=== PATIENT | female | born 1985 | race Asian ===

== ENCOUNTER 2018-04-22 03:20 | Inpatient (IN) | payer BC ==
[2018-04-22] MEDS ORDERED: Nalbuphine 20 MG/1 ML Amp IVPUSH PRN (05:12)
[2018-04-22] MEDS ORDERED: Sodium Chloride 0.9% 10 ML Syringe FLUSH PRN (05:12)
[2018-04-22] MEDS ORDERED: Ondansetron 4 MG/2 ML SDV IVPUSH PRN (05:12)
[2018-04-22] MEDS ORDERED: Oxytocin/Lactated Ringers 10 UNIT/1,000 ML BAG IV SCH ×2 (05:15→07:45)
[2018-04-22] MEDS ORDERED: Lactated Ringers 1,000 ML IV SCH (05:15)
--- NOTE | 2018-04-22 05:25 | PCM.LDHP ---
L&D History of Present Illness - General Date of Service: 04/22/18 Admit Problem/Dx: Patient Status Order with Admit Dx/Problem 04/22/18 04:26 Patient Status [ADT] Routine 04/22/18 05:12 Patient Status [ADT] Routine Admission Diagnosis/Problem Admission Diagnosis/Problem Source of Information: Patient History Limitations: Reports: No Limitations - History of Present Illness Introduction:: Patient is a 32 y/o at 39 0/7 wks who presents with PROM. States that at about 0130 this am had a release of scant amount of fluid. Has had some mild tightening, but no peggy contractions. Otherwise doing well. Denies any complications with this - Related Data Allergies/Adverse Reactions: Allergies Allergy/AdvReac Type Severity Reaction Status Date / Time No Known Allergies Allergy Verified 10/11/15 01:12 Home Medications: Home Meds Acetaminophen [Tylenol] 650 mg PO Q6H PRN #50 tablet 10/13/15 [Rx] Benzocaine/Menthol [Dermoplast Pain Relief [place]] 1 spray TOP ASDIRECTED PRN #1 canister 10/13/15 [Rx] Docusate Sodium [Colace] 100 mg PO BID PRN #50 cap 10/13/15 [Rx] Ibuprofen [Motrin] 200 - 600 mg PO Q6H PRN #50 tablet 10/13/15 [Rx] Lanolin [Lansinoh HPA] 1 applic TOP ASDIRECTED PRN #1 tube 10/13/15 [Rx] Past Medical History - Past Health History Medical/Surgical History: Denies 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 (Approximate): Social & Family History - Family History HEENT: Reports: Other (See Below) Other HEENT Family History: See pts for family hx - Tobacco Use Smoking Status *Q: Never Smoker - Alcohol Use Alcohol Use History: No - Recreational Drug Use Recreational Drug Use: No H&P Review of Systems - Review of Systems: Review Of Systems: See Below General: Reports: No Symptoms Pulmonary: Reports: No Symptoms Cardiovascular: Reports: No Symptoms Gastrointestinal: Reports: No Symptoms Genitourinary: Reports: No Symptoms Musculoskeletal: Reports: No Symptoms Psychiatric: Reports: No Symptoms Neurological: Reports: No Symptoms L&D Exam - Exam Exam: See Below - OB Specific Contraction Intensity: Mild Movement: Active Heart Tones: Present Heart Tones per Min: 130 Heart Rate (FHR) Variability: Moderate (6-25 bmp) Presentation: Vertex - Zheng Score Zheng Score Cervix Position: Posterior Zheng Score Consistency: Medium Zheng Score Effacement: 31-50% Zheng Score Dilation: 1-2 cm Zheng Score 's Station: -3 Zheng Score Total: 3 - Exam General: Alert, Oriented, Cooperative Lungs: Clear to Auscultation, Normal Respiratory Effort Cardiovascular: Regular Rate, Regular Rhythm GI/Abdominal Exam: Soft, Non-Tender Genitourinary: Normal external exam Extremities: Normal Inspection Skin: Warm, Dry, Intact - Patient Data Lab Results Last 24 hrs: Laboratory Results - last 24 hr 04/22/18 Range/Units 04:20 Membrane Rupture Positive H - Problem List (1) 39 weeks gestation of SNOMED Code(s): 21845898 ICD Code: Z3A.39 - 39 WEEKS GESTATION OF Status: Acute Current Visit: Yes (2) PROM (premature rupture of membranes) SNOMED Code(s): 20946702 ICD Code: O42.90 - JULIANNA ROM, 7TH0 BETW RUPT & ONST LABR, UNSP WEEKS OF GEST Status: Acute Current Visit: Yes Qualifiers: PROM onset of labor timing: unspecified duration between rupture of membranes and onset of labor PROM gestational age: full term Qualified Code( s): O42.92 - Full-term premature rupture of membranes, unspecified as to length of time between rupture and onset of labor Problem List Initiated/Reviewed/Updated: Yes Orders Last 24hrs: Active Orders 24 hr Category Date Time Status Patient Status [ADT] Routine ADT 04/22/18 04:26 Active Patient Status [ADT] Routine ADT 04/22/18 05:12 Ordered Activity as Tolerated [RC] PFP Care 04/22/18 05:12 Ordered Communication Order [RC] ASDIRECTED Care 04/22/18 05:12 Ordered Heart Tones [RC] ASDIRECTED Care 04/22/18 05:12 Ordered Non Stress Test [RC] PER UNIT ROUTINE Care 04/22/18 04:26 Active Non Stress Test [RC] PER UNIT ROUTINE Care 04/22/18 05:12 Ordered Notify Provider [RC] PFP Care 04/22/18 05:12 Ordered Notify Provider [RC] PRN Care 04/22/18 05:12 Ordered Peripheral IV Care [RC] . DIRECTED Care 04/22/18 05:12 Ordered Vaginal Exam [RC] PRN Care 04/22/18 04:27 Active Vital Signs [RC] PER UNIT ROUTINE Care 04/22/18 04:26 Active Vital Signs [RC] PER UNIT ROUTINE Care 04/22/18 05:12 Ordered Regular Diet [DIET] Diet 04/22/18 Breakfast Ordered CBC W/O DIFF,HEMOGRAM [HEME] Routine Lab 04/22/18 05:12 Ordered RAPID PLASMA REAGIN,RPR [CHEM] Routine Lab 04/22/18 05:12 Ordered TYPE AND SCREEN [BBK] Routine Lab 04/22/18 05:12 Ordered Lactated Ringers [Ringers, Lactated] 1,000 ml Med 04/22/18 05:15 Ordered IV ASDIRECTED Nalbuphine [Nubain] Med 04/22/18 05:12 Ordered 10 mg IVPUSH Q2H PRN Ondansetron [Zofran] Med 04/22/18 05:12 Ordered 4 mg IVPUSH Q4H PRN Oxytocin/Lactated Ringers [Pitocin in LR 10 Units/1,000 Med 04/22/18 05:15 Ordered ML] 10 unit in 1,000 ml IV .CONTINUOUS Sodium Chloride 0.9% [Saline Flush] Med 04/22/18 05:12 Ordered 10 ml FLUSH ASDIRECTED PRN Electronic Heart Tones Ext w TOCO [WOMSER] Oth 04/22/18 05:12 Ordered Routine Electronic Heart Tones Internal [WOMSER] Per Unit Oth 04/22/18 05:12 Ordered Routine Peripheral IV Insertion Adult [OM.PC] Routine Oth 04/22/18 05:12 Ordered Resuscitation Status Routine Resus Stat 04/22/18 04:26 Ordered Assessment/Plan Comment:: 32 y/o at 39 0/7 wks who presents for PROM * CBC, T&S, RPR * GBS negative, no need for antibiotics * If no strong contractions in the next 1-2 hours will start pitocin for augmentation * Pain management per patient preference * Anticipate
--- NOTE | 2018-04-22 10:42 | PCM.PNLD ---
Labor Progress Note - VS & Meds Vital Signs: Last Vital Signs Temp Pulse 87 04/22/18 04:26 Resp 16 04/22/18 04:26 BP 131/75 04/22/18 04:26 Pulse Ox Active Medications: Current Medications Lactated Ringer's (Ringers, Lactated) 1,000 mls @ 100 mls/hr IV ASDIRECTED NISA Last Admin: 04/22/18 08:02 Dose: 100 mls/hr Oxytocin/Lactated Ringer's (Pitocin In Lr 10 Units/1,000 Ml) 10 unit in 1,000 mls @ 500 mls/hr IV .CONTINUOUS NISA Oxytocin/Lactated Ringer's (Pitocin In Lr 10 Units/1,000 Ml) 10 unit in 1,000 mls @ 12 mls/hr IV TITRATE NISA; Protocol Last Titration: 04/22/18 09:45 Dose: 8 munits/min, 48 mls/hr Nalbuphine HCl (Nubain) 10 mg IVPUSH Q2H PRN PRN Reason: Pain (moderate 4-6) Ondansetron HCl (Zofran) 4 mg IVPUSH Q4H PRN PRN Reason: Nausea/Vomiting Sodium Chloride (Saline Flush) 10 ml FLUSH ASDIRECTED PRN PRN Reason: Keep Vein Open - Uterine Contractions Contraction Intensity: Mild to Moderate - Monitoring Monitor Mode: External Ultrasound Heart Rate (FHR) Baseline: 140 Heart Rate (FHR) Variability: Moderate (6-25 bmp) Accelerations: Present, 15x15 Decelerations: None Strip Review: Category I - Vaginal Exam Dilation (cm): 2 Effacement (Percent): 50 Station: -3 Cervical Position: Posterior - Labor Progress (Free Text) Labor Progress: Patient doing well currently. Pitocin currently at 8. Has had only minimal dampness on underwear. Discussed rupture of forebag, but as discussing patient with large gush of fluid. Continue present management
[2018-04-22] MEDS ORDERED: Lidocaine 1% 50 ML MDV ONE (16:07)
[2018-04-22] MEDS ORDERED: Lidocaine 1% 20 ML MDV INFILT ONE (16:19)
--- NOTE | 2018-04-22 16:26 | PCM.DEL ---
L & D Note - General Info Date of Service: 04/22/18 - Delivery Note Labor: Augmented by Oxytocin Delivery Outcome: Livebirth Delivery Method: Spontaneous Vaginal Delivery-Single Infant Delivery Mode: Spontaneous Presentation: Right Occiput Anterior (MELQUIADES) Nuchal Cord: None Anesthesia Type: None Amniotic Fluid Description: Clear Episiotomy Type: None Laceration: 1st Degree Suture type: Vicryl Suture size: 2-0 Placenta: Intact, Spontaneous Cord: 3 Vessels Estimated Blood Loss: 250 Resuscitation Needed: Yes [place]: Bulb Syringe, Stimulated, Warmed, [place] Used, Warmer Used Score 1 min: 8 Score 5 min: 9 Delivery Comments (Free Text/Narrative):: Patient found to be complete and began pushing. With maternal pushing effort head delivered from an MELQUIADES presentation. No nuchal cord present. With gentle downward traction the shoulders and body delivered. Infant placed on maternal abdomen. Cord clamped and cut. Cord blood obtained. Placenta allowed time to separate and expelled intact. Inspection of the perineum showed a longer 1st degree laceration. This was repaired with a 2-0 in the typical fashion - General Info Date of Service: 04/22/18 - Patient Data Vitals - Most Recent: Last Vital Signs Temp Pulse 87 04/22/18 04:26 Resp 16 04/22/18 04:26 BP 131/75 04/22/18 04:26 Pulse Ox Weight - Most Recent: 96.116 kg I&O - Last 24 Hours: Intake & Output 04/22/18 04/22/18 04/22/18 06:59 14:59 22:59 Intake Total 120 Balance 120 Lab Results Last 24 Hours: Laboratory Results - last 24 hr 04/22/18 04/22/18 04/22/18 Range/Units 04:20 05:31 05:31 WBC 11.21 H (3.98-10.04) K/mm3 RBC 4.32 (3.98-5.22) M/mm3 Hgb 13.3 (11.2-15.7) gm/L Hct 39.8 (34.1-44.9) % MCV 92.1 (79.4-94.8) fl MCH 30.8 (25.6-32.2) pg MCHC 33.4 (32.2-35.5) g/dl RDW Std Deviation 44.0 (36.4-46.3) fL Plt Count 202 (182-369) K/mm3 MPV 10.5 (9.4-12.3) fl Membrane Rupture Positive H RPR Non-reactive (NONREACTIVE) Blood Type Gel Antibody Screen 04/22/18 Range/Units 05:31 WBC (3.98-10.04) K/mm3 RBC (3.98-5.22) M/mm3 Hgb (11.2-15.7) gm/L Hct (34.1-44.9) % MCV (79.4-94.8) fl MCH (25.6-32.2) pg MCHC (32.2-35.5) g/dl RDW Std Deviation (36.4-46.3) fL Plt Count (182-369) K/mm3 MPV (9.4-12.3) fl Membrane Rupture RPR (NONREACTIVE) Blood Type B POSITIVE Gel Antibody Screen Negative Med Orders - Current: Current Medications Lactated Ringer's (Ringers, Lactated) 1,000 mls @ 100 mls/hr IV ASDIRECTED NISA Last Admin: 04/22/18 08:02 Dose: 100 mls/hr Oxytocin/Lactated Ringer's (Pitocin In Lr 10 Units/1,000 Ml) 10 unit in 1,000 mls @ 500 mls/hr IV .CONTINUOUS NISA Oxytocin/Lactated Ringer's (Pitocin In Lr 10 Units/1,000 Ml) 10 unit in 1,000 mls @ 12 mls/hr IV TITRATE NISA; Protocol Last Titration: 04/22/18 09:45 Dose: 8 munits/min, 48 mls/hr Nalbuphine HCl (Nubain) 10 mg IVPUSH Q2H PRN PRN Reason: Pain (moderate 4-6) Ondansetron HCl (Zofran) 4 mg IVPUSH Q4H PRN PRN Reason: Nausea/Vomiting Sodium Chloride (Saline Flush) 10 ml FLUSH ASDIRECTED PRN PRN Reason: Keep Vein Open Discontinued Medications Lidocaine HCl (Xylocaine 1%) Confirm Administered Dose 50 ml .ROUTE .STK-MED ONE Stop: 04/22/18 16:08 Lidocaine HCl (Xylocaine 1%) 50 ml INFILT ONETIME ONE Stop: 04/22/18 16:20 - Problem List & Annotations (1) 39 weeks gestation of SNOMED Code(s): 43237509 Code(s): Z3A.39 - 39 WEEKS GESTATION OF Status: Acute Current Visit: Yes (2) PROM (premature rupture of membranes) SNOMED Code(s): 81050390 Code(s): O42.90 - JULIANNA ROM, 7TH0 BETW RUPT & ONST LABR, UNSP WEEKS OF GEST Status: Acute Current Visit: Yes Qualifiers: PROM onset of labor timing: unspecified duration between rupture of membranes and onset of labor PROM gestational age: full term Qualified Code( s): O42.92 - Full-term premature rupture of membranes, unspecified as to length of time between rupture and onset of labor (3) Vaginal delivery SNOMED Code(s): 119708826 Code(s): O80 - ENCOUNTER FOR FULL-TERM UNCOMPLICATED DELIVERY Status: Acute Current Visit: Yes - Problem List Review Problem List Initiated/Reviewed/Updated: Yes - My Orders Last 24 Hours: My Active Orders 04/22/18 04:26 Patient Status [ADT] Routine Non Stress Test [RC] PER UNIT ROUTINE Vital Signs [RC] PER UNIT ROUTINE Resuscitation Status Routine 04/22/18 04:27 Vaginal Exam [RC] PRN 04/22/18 05:12 Patient Status [ADT] Routine Activity as Tolerated [RC] PFP Communication Order [RC] ASDIRECTED Heart Tones [RC] ASDIRECTED Non Stress Test [RC] PER UNIT ROUTINE Notify Provider [RC] PFP Notify Provider [RC] PRN Peripheral IV Care [RC] . DIRECTED Vital Signs [RC] PER UNIT ROUTINE Nalbuphine [Nubain] 10 mg IVPUSH Q2H PRN Ondansetron [Zofran] 4 mg IVPUSH Q4H PRN Sodium Chloride 0.9% [Saline Flush] 10 ml FLUSH ASDIRECTED PRN Electronic Heart Tones Ext w TOCO [WOMSER] Routine Electronic Heart Tones Internal [WOMSER] Per Unit Routine Peripheral IV Insertion Adult [OM.PC] Routine 04/22/18 05:15 Lactated Ringers [Ringers, Lactated] 1,000 ml IV ASDIRECTED Oxytocin/Lactated Ringers [Pitocin in LR 10 Units/1,000 ML] 10 unit in 1,000 ml IV .CONTINUOUS 04/22/18 07:45 Oxytocin/Lactated Ringers [Pitocin in LR 10 Units/1,000 ML] 10 unit in 1,000 ml IV TITRATE 04/22/18 16:20 Patient Status Manage Transfer [TRANSFER] Routine 04/22/18 Breakfast Regular Diet [DIET] - Assessment Assessment:: 32 y/o G2 now P2002 PPD#0 from after PROM at 39 0/7 wks - Plan Plan:: * Routine cares * Encourage breast feeding * Discharge home in 1-2 days
[2018-04-22] MEDS ORDERED: Docusate Sodium 100 MG Cap PO PRN (16:36)
[2018-04-22] MEDS ORDERED: Acetaminophen 325 MG Tab PO PRN (16:36)
[2018-04-22] MEDS ORDERED: Lanolin 100% Cream 7 GM Tube TOP PRN (16:36)
[2018-04-22] MEDS ORDERED: Witch Hazel Medicated Pads 100/Jar TOP PRN (16:36)
[2018-04-22] MEDS ORDERED: Benzocaine/Menthol 20%-0.5% Spray 56 GM Canister TOP PRN (16:36)
[2018-04-22] MEDS: Ibuprofen 600 MG Tab PO PRN (22:35)
[2018-04-23] MEDS: Ibuprofen 600 MG Tab PO PRN (05:52)
--- NOTE | 2018-04-23 08:57 | PCM.PNPP ---
- General Info Date of Service: 04/23/18 Functional Status: Reports: Pain Controlled, Tolerating Diet, Ambulating, Urinating - Review of Systems General: Reports: No Symptoms Pulmonary: Reports: No Symptoms Cardiovascular: Reports: No Symptoms Gastrointestinal: Reports: No Symptoms Genitourinary: Reports: No Symptoms Musculoskeletal: Reports: No Symptoms Neurological: Reports: No Symptoms - Patient Data Vital Signs - Most Recent: Last Vital Signs Temp 36.4 C 04/23/18 03:00 Pulse 88 04/23/18 02:38 Resp 17 04/23/18 02:38 BP 109/72 04/23/18 02:38 Pulse Ox 97 04/23/18 02:38 Weight - Most Recent: 96.116 kg I&O - Last 24 Hours: Intake & Output 04/22/18 04/23/18 04/23/18 22:59 06:59 14:59 Intake Total 1800 Balance 1800 Med Orders - Current: Current Medications Acetaminophen (Tylenol) 650 mg PO Q4H PRN PRN Reason: mild pain or fever Benzocaine/Menthol (Dermoplast Pain Relief [place]) 0 gm TOP ASDIRECTED PRN PRN Reason: Perineal Comfort Measure Last Admin: 04/22/18 17:52 Dose: 1 can Docusate Sodium (Colace) 100 mg PO BID PRN PRN Reason: Constipation Emollient Ointment (Lansinoh Hpa) 0 gm TOP ASDIRECTED PRN PRN Reason: Sore Nipples Ibuprofen (Motrin) 600 mg PO Q6H PRN PRN Reason: Mild pain or fever Last Admin: 04/23/18 05:52 Dose: 600 mg Witch Aliza (Tucks) 1 pad TOP ASDIRECTED PRN PRN Reason: Hemorrhoid pain Last Admin: 04/22/18 17:53 Dose: 1 jar Discontinued Medications Lactated Ringer's (Ringers, Lactated) 1,000 mls @ 100 mls/hr IV ASDIRECTED NISA Last Admin: 04/22/18 08:02 Dose: 100 mls/hr Oxytocin/Lactated Ringer's (Pitocin In Lr 10 Units/1,000 Ml) 10 unit in 1,000 mls @ 500 mls/hr IV .CONTINUOUS NISA Oxytocin/Lactated Ringer's (Pitocin In Lr 10 Units/1,000 Ml) 10 unit in 1,000 mls @ 12 mls/hr IV TITRATE NISA; Protocol Last Titration: 04/22/18 09:45 Dose: 8 munits/min, 48 mls/hr Lidocaine HCl (Xylocaine 1%) Confirm Administered Dose 50 ml .ROUTE .STK-MED ONE Stop: 04/22/18 16:08 Last Admin: 04/22/18 17:47 Dose: 50 ml Lidocaine HCl (Xylocaine 1%) 50 ml INFILT ONETIME ONE Stop: 04/22/18 16:20 Last Admin: 04/22/18 17:47 Dose: Not Given Nalbuphine HCl (Nubain) 10 mg IVPUSH Q2H PRN PRN Reason: Pain (moderate 4-6) Ondansetron HCl (Zofran) 4 mg IVPUSH Q4H PRN PRN Reason: Nausea/Vomiting Sodium Chloride (Saline Flush) 10 ml FLUSH ASDIRECTED PRN PRN Reason: Keep Vein Open - Interaction Infant Disposition, : in Room with Family Interaction: Holding Infant Feeding: Breastfed Infant; Nursed Well Support Person: - Recovery Exam Fundal Tone: Firm Fundal Level: At Umbilicus Fundal Placement: Midline Lochia Amount: Small Lochia Color: Rubra/Red Perineum Description: Intact, Minimal Bruising/Swelling Episiotomy/Laceration: Approximated Bladder Status: Voiding - Exam General: Alert, Oriented, Cooperative GI/Abdominal Exam: Soft, Non-Tender Extremities: Normal Inspection Skin: Warm, Dry, Intact - Problem List & Annotations (1) 39 weeks gestation of SNOMED Code(s): 08803746 Code(s): Z3A.39 - 39 WEEKS GESTATION OF Status: Acute Current Visit: Yes (2) PROM (premature rupture of membranes) SNOMED Code(s): 97319024 Code(s): O42.90 - JULIANNA ROM, 7TH0 BETW RUPT & ONST LABR, UNSP WEEKS OF GEST Status: Acute Current Visit: Yes Qualifiers: PROM onset of labor timing: unspecified duration between rupture of membranes and onset of labor PROM gestational age: full term Qualified Code( s): O42.92 - Full-term premature rupture of membranes, unspecified as to length of time between rupture and onset of labor (3) Vaginal delivery SNOMED Code(s): 345606637 Code(s): O80 - ENCOUNTER FOR FULL-TERM UNCOMPLICATED DELIVERY Status: Acute Current Visit: Yes - Problem List Review Problem List Initiated/Reviewed/Updated: Yes - My Orders Last 24 Hours: My Active Orders 04/22/18 16:36 Activity as Tolerated [RC] PER UNIT ROUTINE Vital Signs [RC] 09,15,21,03 Acetaminophen [Tylenol] 650 mg PO Q4H PRN Benzocaine/Menthol [Dermoplast Pain Relief [place]] See Dose Instructions TOP ASDIRECTED PRN Docusate Sodium [Colace] 100 mg PO BID PRN Ibuprofen [Motrin] 600 mg PO Q6H PRN Lanolin [Lansinoh HPA] See Dose Instructions TOP ASDIRECTED PRN Witch Aliza [Tucks] 1 pad TOP ASDIRECTED PRN Assess Lochia [WOMSER] Per Unit Routine Assess Uterine Involution [WOMSER] Per Unit Routine Breast Pump [WOMSER] Per Unit Routine Heat Therapy [OM.PC] PRN Ice Therapy [OM.PC] Per Unit Routine Perineal Care [OM.PC] Per Unit Routine Peripheral IV Discontinue [OM.PC] Routine Sitz Bath [OM.PC] Per Unit Routine 04/22/18 Dinner Regular Diet [DIET] 04/23/18 16:36 Heat Therapy [OM.PC] PRN - Assessment Assessment:: 32 y/o G2 now P2002 PPD#1 from after PROM at 39 0/7 wks - Plan Plan:: * Routine cares * Encourage breast feeding * Discharge home today
--- NOTE | 2018-04-23 09:01 | PCM.DCSUM1 ---
Discharge Summary - Discharge Data Discharge Date: 04/23/18 Discharge Disposition: Home, Self-Care 01 Condition: Good - Discharge Diagnosis/Problem(s) (1) 39 weeks gestation of SNOMED Code(s): 87842346 ICD Code: Z3A.39 - 39 WEEKS GESTATION OF Status: Acute Current Visit: Yes (2) PROM (premature rupture of membranes) SNOMED Code(s): 63028507 ICD Code: O42.90 - JULIANNA ROM, 7TH0 BETW RUPT & ONST LABR, UNSP WEEKS OF GEST Status: Acute Current Visit: Yes Qualifiers: PROM onset of labor timing: unspecified duration between rupture of membranes and onset of labor PROM gestational age: full term Qualified Code( s): O42.92 - Full-term premature rupture of membranes, unspecified as to length of time between rupture and onset of labor (3) Vaginal delivery SNOMED Code(s): 742300630 ICD Code: O80 - ENCOUNTER FOR FULL-TERM UNCOMPLICATED DELIVERY Status: Acute Current Visit: Yes - Patient Summary/Data Complications: None Consults: None Recommended Follow-up Testing/Procedures: Follow up in 2 weeks for check Hospital Course: 32 y/o at 39 0/7 wks who presented with PROM. She was started on pitocin for augmentation. She progressed well to complete dilation. She underwent an uncomplicated . See delivery note for full details. she did well and was discharged home on PPD#1 - Patient Instructions Diet: Regular Diet as Tolerated Activity: As Tolerated Activity, Other: Pelvic Rest for 6 weeks Driving: May Drive Today Showering/Bathing: May Shower Showering/Bathing, Other: May Bathe Notify Provider of: Fever, Increased Pain, Swelling and Redness, Drainage, Nausea and/or Vomiting - Discharge Plan *PRESCRIPTION DRUG MONITORING PROGRAM REVIEWED*: Not Applicable *COPY OF PRESCRIPTION DRUG MONITORING REPORT IN PATIENT DANA: Not Applicable Home Medications: Home Meds Vit #108/Iron/FA [ One Tablet] 1 tab PO DAILY 04/22/18 [History ] Docusate Sodium [Colace] 100 mg PO BID PRN cap 04/23/18 [Rx] Ibuprofen [Motrin] 600 mg PO Q6H PRN tablet 04/23/18 [Rx] Referrals: Russ Heller MD [Physician] - (2 weeks for check ) - Discharge Summary/Plan Comment DC Time >30 min.: No - Patient Data Vitals - Most Recent: Last Vital Signs Temp 36.4 C 04/23/18 03:00 Pulse 88 04/23/18 02:38 Resp 17 04/23/18 02:38 BP 109/72 04/23/18 02:38 Pulse Ox 97 04/23/18 02:38 Weight - Most Recent: 96.116 kg I&O - Last 24 hours: Intake & Output 04/22/18 04/23/18 04/23/18 22:59 06:59 14:59 Intake Total 1800 Balance 1800 Med Orders - Current: Current Medications Acetaminophen (Tylenol) 650 mg PO Q4H PRN PRN Reason: mild pain or fever Benzocaine/Menthol (Dermoplast Pain Relief [place]) 0 gm TOP ASDIRECTED PRN PRN Reason: Perineal Comfort Measure Last Admin: 04/22/18 17:52 Dose: 1 can Docusate Sodium (Colace) 100 mg PO BID PRN PRN Reason: Constipation Emollient Ointment (Lansinoh Hpa) 0 gm TOP ASDIRECTED PRN PRN Reason: Sore Nipples Ibuprofen (Motrin) 600 mg PO Q6H PRN PRN Reason: Mild pain or fever Last Admin: 04/23/18 05:52 Dose: 600 mg Witch Aliza (Tucks) 1 pad TOP ASDIRECTED PRN PRN Reason: Hemorrhoid pain Last Admin: 04/22/18 17:53 Dose: 1 jar Discontinued Medications Lactated Ringer's (Ringers, Lactated) 1,000 mls @ 100 mls/hr IV ASDIRECTED NISA Last Admin: 04/22/18 08:02 Dose: 100 mls/hr Oxytocin/Lactated Ringer's (Pitocin In Lr 10 Units/1,000 Ml) 10 unit in 1,000 mls @ 500 mls/hr IV .CONTINUOUS NISA Oxytocin/Lactated Ringer's (Pitocin In Lr 10 Units/1,000 Ml) 10 unit in 1,000 mls @ 12 mls/hr IV TITRATE NISA; Protocol Last Titration: 04/22/18 09:45 Dose: 8 munits/min, 48 mls/hr Lidocaine HCl (Xylocaine 1%) Confirm Administered Dose 50 ml .ROUTE .STK-MED ONE Stop: 04/22/18 16:08 Last Admin: 04/22/18 17:47 Dose: 50 ml Lidocaine HCl (Xylocaine 1%) 50 ml INFILT ONETIME ONE Stop: 04/22/18 16:20 Last Admin: 04/22/18 17:47 Dose: Not Given Nalbuphine HCl (Nubain) 10 mg IVPUSH Q2H PRN PRN Reason: Pain (moderate 4-6) Ondansetron HCl (Zofran) 4 mg IVPUSH Q4H PRN PRN Reason: Nausea/Vomiting Sodium Chloride (Saline Flush) 10 ml FLUSH ASDIRECTED PRN PRN Reason: Keep Vein Open
[2018-04-23 18:11] VITALS: BP 128/72
== END 2018-04-23 16:40 | disposition home or self-care (01) | DRG 560 ==
LOC: JD.OBCHECK 03:20 → JD.OB 03:25 → JD.OBCHECK 05:12 → JD.OB 05:19 → OBSVTOIN 16:02 → JD.OB 16:03
PROVIDERS: ADMIT Obstetrics & Gynecology; ATTEND Obstetrics & Gynecology
PROC: 0HQ9XZZ Repair Perineum Skin, External Approach (ICD-10-PCS; principal; 2018-04-22)
PROC: 10E0XZZ Delivery of Products of Conception, External Approach (ICD-10-PCS; principal; 2018-04-22)
PROC: 6A550ZT Pheresis of Cord Blood Stem Cells, Single (ICD-10-PCS; principal; 2018-04-22)
DX: O42.92 Full-term premature rupture of membranes, unspecified as to length of time between rupture and onset of labor (principal); Z3A.39 39 weeks gestation of pregnancy; Z37.0 Single live birth; O70.0 First degree perineal laceration during delivery
CPT/HCPCS: 36415; 59025; 59300; 59409; 84112; 85027; 86592; 86850; 86900; 86901; A9270-GY; J2590; J7120